=== PATIENT | female | born 1995 | race Caucasian/White ===

== ENCOUNTER → 2017-02-11 | Outpatient (CLI) | payer OTHER ==
[~2017-02-11] MED LIST: DOCU-30 PO; IBUP-1222 PO; OXYC-302 PO; PREN1TAB27 PO
== END | disposition home or self-care (01) ==
LOC: RAD 13:49
PROVIDERS: ATTEND Physician Assistant
DX: O26.892 Other specified pregnancy related conditions, second trimester (principal); R10.9 Unspecified abdominal pain; Z3A.18 18 weeks gestation of pregnancy
CPT/HCPCS: 76805

== ENCOUNTER 2017-03-25 13:45 | Outpatient (CLI) | payer OTHER ==
[~2017-03-25] VITALS: Ht 170.2 cm; Wt 79.5 kg
[2017-03-25 13:50] VITALS: BP 105/67
== END 2017-03-25 14:20 | disposition home or self-care (01) ==
LOC: LDOP 13:45
PROVIDERS: ATTEND Obstetrics & Gynecology
DX: O36.8120 Decreased fetal movements, second trimester, not applicable or unspecified (principal); O99.342 Other mental disorders complicating pregnancy, second trimester; F32.9 Major depressive disorder, single episode, unspecified; Z3A.23 23 weeks gestation of pregnancy
CPT/HCPCS: 59025; 99201; G0463

== ENCOUNTER 2017-05-26 15:31 | Outpatient (CLI) | payer OTHER ==
[~2017-05-26] VITALS: Ht 170.2 cm; Wt 72.3 kg
[2017-05-26 15:53] VITALS: BP 109/59
[2017-05-26 16:32] LABS: DAU SCREEN DISCLAIMER
[2017-05-26] MEDS ORDERED: ACET325C PO (17:16)
== END 2017-05-26 17:40 | disposition home or self-care (01) ==
LOC: LDOP 15:31
PROVIDERS: ATTEND Obstetrics & Gynecology
DX: O26.893 Other specified pregnancy related conditions, third trimester (principal); O99.343 Other mental disorders complicating pregnancy, third trimester; R10.9 Unspecified abdominal pain; M54.9 Dorsalgia, unspecified; F32.9 Major depressive disorder, single episode, unspecified; Z3A.32 32 weeks gestation of pregnancy
CPT/HCPCS: 36415; 59025; 80307; 81001; 82731; 87077; 87086; 87186; 99211; G0463

== ENCOUNTER 2017-06-18 07:54 | Inpatient (IN) | payer OTHER ==
[~2017-06-18] VITALS: Ht 172.7 cm; Wt 77.2 kg
[~2017-06-18 07:54] MED LIST changes: +ACET325C PO; +DOCU-131 PO; -DOCU-30 PO
[2017-07-12 17:40] VITALS: BP 118/69
[2017-07-12] MEDS ORDERED: OXYTOCIN 30U/ 0.9% NaCL 500ML 500 ML IV SCH (17:47)
[2017-07-12] MEDS ORDERED: SODIUM CITRATE/CITRIC ACID 30 ML UDC PO ONE ×2 (18:00→19:30)
[2017-07-12] MEDS ORDERED: LACTATED RINGERS 1,000 ML IVBOLUS ONE (18:00)
[2017-07-12 18:12] LABS: HEMATOCRIT 38.3 % (34.6-47.8); HEMOGLOBIN 12.7 g/dL (11.7-16.4)
[2017-07-12] MEDS ORDERED: PLEASE ENTER HEIGHT AND WEIGHT MC SCH (18:30)
[2017-07-12] MEDS ORDERED: SODIUM CITRATE/CITRIC ACID 30 ML UDC ONE ×2 (18:31→19:39)
[2017-07-12] MEDS ORDERED: OXYTOCIN 30U/ 0.9% NaCL 500ML 500 ML ONE (18:31)
[2017-07-12] MEDS ORDERED: METOCLOPRAMIDE 5 MG/ML, 2ML ONE ×2 (18:31→19:39)
[2017-07-12] MEDS ORDERED: NEWBORN KIT ONE (18:31)
[2017-07-12] MEDS: LACTATED RINGERS 1,000 ML IV SCH ×4 (18:44→22:08)
[2017-07-12] MEDS ORDERED: EPHEDRINE 50 MG/ML, 1ML IVPush PRN (19:00)
[2017-07-12] MEDS ORDERED: ONDANSETRON 2MG/ML, 2ML IVPush PRN (19:00)
[2017-07-12] MEDS ORDERED: HYDROcodone/APAP 7.5-325MG/15ML UDC PO PRN (19:00)
[2017-07-12] MEDS ORDERED: OXYcodone 5 MG/5 ML ORAL.SOL UDC PO PRN (19:00)
[2017-07-12] MEDS ORDERED: PROMETHAZINE 25 MG/ML, 1ML IV PRN (19:00)
[2017-07-12] MEDS ORDERED: MEPERIDINE/PF 25MG/0.5ML IVPush PRN (19:00)
[2017-07-12] MEDS ORDERED: LABETALOL 5MG/ML, 20ML IV PRN (19:00)
[2017-07-12] MEDS ORDERED: FENTANYL PF 100 MCG/2ML IV PRN (19:00)
[2017-07-12] MEDS ORDERED: MIDAZOLAM 1 MG/ML, 2ML IV PRN (19:00)
[2017-07-12] MEDS ORDERED: hydrALAzine 20 MG/ML, 1ML IV PRN (19:00)
[2017-07-12] MEDS ORDERED: ALBUTEROL SULFATE 2.5 MG/3 ML NPPB PRN (19:00)
[2017-07-12] MEDS ORDERED: HYDROmorphone 1 MG/ML, 1ML IV PRN (19:00)
[2017-07-12] MEDS ORDERED: FENTANYL PF 100 MCG/2ML ONE ×2 (19:14→19:39)
[2017-07-12] MEDS ORDERED: METOCLOPRAMIDE 5 MG/ML, 2ML IV ONE (19:30)
[2017-07-12] MEDS ORDERED: CEFAZOLIN 1,000 MG ONE (19:39)
[2017-07-12] MEDS ORDERED: KETOROLAC 30 MG/1 ML ONE (19:39)
[2017-07-12] MEDS ORDERED: DEXAMETHASONE 4 MG/ML, 1ML ONE (19:39)
[2017-07-12] MEDS ORDERED: ONDANSETRON 2MG/ML, 2ML ONE (19:39)
[2017-07-12] MEDS ORDERED: OXYTOCIN 10 UNITS/ML, 1ML ONE (19:39)
[2017-07-12] MEDS: OXYTOCIN 30U/ 0.9% NaCL 500ML 500 ML IV SCH (20:54)
[2017-07-12] MEDS ORDERED: IBUPROFEN 600 MG TABLET PO PRN (21:00)
[2017-07-12] MEDS ORDERED: ONDANSETRON 2MG/ML, 2ML IV PRN (21:00)
[2017-07-12] MEDS ORDERED: OXYcodone/APAP 5/325MG TABLET PO PRN (21:00)
[2017-07-12] MEDS ORDERED: morphine SULFATE 10 MG/ML, 1ML IVPush PRN ×2 (21:00)
[2017-07-12] MEDS ORDERED: MISOPROSTOL 200 MCG TABLET PR PRN (21:00)
[2017-07-12] MEDS ORDERED: SIMETHICONE 80 MG CHEW TAB PO PRN (21:00)
[2017-07-12] MEDS ORDERED: MEPERIDINE/PF 50 MG/ML IM PRN (21:00)
[2017-07-12] MEDS ORDERED: OXYcodone 5 MG/5 ML ORAL.SOL UDC ONE (22:21)
[2017-07-12 23:00] VITALS: BP 113/66
[2017-07-13] MEDS: KETOROLAC 30 MG/1 ML IV SCH ×4 (00:07→18:51)
[2017-07-13] MEDS: LACTATED RINGERS 1,000 ML IV SCH ×4 (01:47→06:54)
[2017-07-13 03:00] VITALS: BP 111/55
[2017-07-13] MEDS: OXYTOCIN 30U/ 0.9% NaCL 500ML 500 ML IV SCH (04:00)
[2017-07-13 05:07] LABS: HEMATOCRIT 32.4 % (34.6-47.8); HEMOGLOBIN 11.1 g/dL (11.7-16.4); WHITE BLOOD COUNT 18.3 x10^3/uL (3.4-10)
[2017-07-13 07:15] VITALS: BP 112/55
[2017-07-13] MEDS ORDERED: OXYcodone/APAP 5/325MG TABLET ONE (07:37)
[2017-07-13] MEDS ORDERED: PRENATAL VIT/IRON/FA 1 EACH TABLET ONE (07:38)
[2017-07-13] MEDS ORDERED: DOCUSATE 100 MG CAPSULE ONE (07:38)
[2017-07-13] MEDS: DOCUSATE 100 MG CAPSULE PO PRN ×2 (07:43→21:54)
[2017-07-13] MEDS: PRENATAL VIT/IRON/FA 1 EACH TABLET PO SCH (07:43)
[2017-07-13] MEDS: OXYcodone/APAP 5/325MG TABLET PO PRN ×2 (11:44→16:06)
[2017-07-13 11:59] VITALS: BP 105/63
[2017-07-13 16:16] VITALS: BP 107/61
[2017-07-13 20:30] VITALS: BP 100/60
[2017-07-14 00:30] VITALS: BP 103/58
[2017-07-14] MEDS: KETOROLAC 30 MG/1 ML IV SCH ×2 (00:36→06:17)
[2017-07-14 07:47] VITALS: BP 105/59
[2017-07-14] MEDS: PRENATAL VIT/IRON/FA 1 EACH TABLET PO SCH (09:32)
[2017-07-14] MEDS ORDERED: OXYC-302 PO (10:31)
[2017-07-14] MEDS ORDERED: IBUP-1222 PO (10:31)
[2017-07-14] MEDS ORDERED: DOCU-131 PO (10:32)
== END 2017-07-14 14:13 | disposition home or self-care (01) | DRG 766 ==
LOC: LDIP 07-12 17:34 → 2NW 07-12 23:07
PROVIDERS: ADMIT Obstetrics & Gynecology; ATTEND Obstetrics & Gynecology
PROC: 10D00Z1 Extraction of Products of Conception, Low, Open Approach (ICD-10-PCS; principal; 2017-07-12)
DX: O34.211 Maternal care for low transverse scar from previous cesarean delivery (principal); D64.9 Anemia, unspecified; O99.02 Anemia complicating childbirth; Z37.0 Single live birth; Z3A.39 39 weeks gestation of pregnancy
CPT/HCPCS: 36415; 85025; 86850; 86900; J0690; J1100; J1885; J2405; J3010; J2590; J2765; J7120

== ENCOUNTER 2017-06-23 11:49 | Outpatient (CLI) | payer OTHER ==
[~2017-06-23] VITALS: Ht 170.2 cm; Wt 79.5 kg
[~2017-06-23 11:49] MED LIST changes: -DOCU-131 PO; +DOCU-30 PO
[2017-06-23 12:11] VITALS: BP 113/71
== END 2017-06-23 13:00 | disposition home or self-care (01) ==
LOC: LDOP 11:49
PROVIDERS: ATTEND Obstetrics & Gynecology
DX: O23.43 Unspecified infection of urinary tract in pregnancy, third trimester (principal); O99.343 Other mental disorders complicating pregnancy, third trimester; F32.9 Major depressive disorder, single episode, unspecified; Z3A.36 36 weeks gestation of pregnancy
CPT/HCPCS: 59025; 81001; 87077; 87086; 87186; 99211; G0463

== ENCOUNTER 2017-07-05 13:30 | Outpatient (CLI) | payer OTHER ==
[~2017-07-05] VITALS: Ht 170.2 cm; Wt 79.5 kg
[~2017-07-05 13:30] MED LIST changes: +DOCU-131 PO; -DOCU-30 PO
[2017-07-05 13:43] VITALS: BP 105/59
== END 2017-07-05 14:21 | disposition home or self-care (01) ==
LOC: LDOP 13:30
PROVIDERS: ATTEND Obstetrics & Gynecology
DX: O26.893 Other specified pregnancy related conditions, third trimester (principal); O99.343 Other mental disorders complicating pregnancy, third trimester; F32.9 Major depressive disorder, single episode, unspecified; R10.9 Unspecified abdominal pain; Z3A.38 38 weeks gestation of pregnancy
CPT/HCPCS: 59025; 99211; G0463

== ENCOUNTER 2018-11-16 23:06 | Emergency (ER) | payer MEDICAID, OTHER ==
[~2018-11-16] VITALS: Ht 170.2 cm; Wt 70.2 kg
--- NOTE | 2018-11-16 23:23 | NUR ---
URINE COLLECTED AND SENT, DR LEE TO BEDSIDE
--- NOTE | 2018-11-16 23:53 | NUR ---
ASSITED WITH PELVIC, PT TOLERATE WITH DIFFICULTY
[2018-11-16 23:57] LABS: MICROSCOPIC INDICATED
[2018-11-16 23:59] LABS: CULTURE INDICATED? YES
[2018-11-17 00:19] LABS: CLUE CELLS NONE SEEN (NONE SEEN); WET PREP WBCS FEW (FEW)
[2018-11-17] MEDS ORDERED: CEFTRIAXONE 250 MG ONE (00:21)
[2018-11-17] MEDS ORDERED: AZITHROMYCIN 250 MG TABLET ONE (00:22)
[2018-11-17] MEDS ORDERED: AZITHROMYCIN 500 MG TABLET PO ONE (00:30)
[2018-11-17] MEDS ORDERED: CEFTRIAXONE 1,000 MG IM ONE ×2 (00:30)
[2018-11-17 01:00] VITALS: BP 112/68
== END 2018-11-17 01:02 | disposition home or self-care (01) ==
LOC: ED 23:33
DX: A56.09 Other chlamydial infection of lower genitourinary tract (principal); A54.03 Gonococcal cervicitis, unspecified
CPT/HCPCS: 81001; 81025; 87086; 87210; 87491; 87591; 87808; 96372; 99283; J0696